=== PATIENT | female | born 1980 | race Caucasian/White ===

== ENCOUNTER → 2020-03-14 | Outpatient (CLI) | payer SELFPAY | LOC: M LABSMTC 14:09 | PROVIDERS: ATTEND Pediatrics | DX: Z20.828 Contact with and (suspected) exposure to other viral communicable diseases (principal) ==

== ENCOUNTER 2021-09-13 18:02 | Emergency (ER) | payer OTHER, SELFPAY ==
[~2021-09-13] VITALS: Ht 175.3 cm; Wt 75.0 kg
[2021-09-13 18:03] VITALS: BP 80/41
[2021-09-13] MEDS ORDERED: CETI-24 (18:25)
[2021-09-13] MEDS ORDERED: ceFAZolin SOD 2 GM in IV 1 EA IV ONE (18:25)
[2021-09-13] MEDS ORDERED: VALA500T5 (18:25)
[2021-09-13] MEDS ORDERED: BOOSTRIX/ADACEL VACCINE (DIPHTH/PERTUSS/ACELL/TETANUS) 0.5ML SYR IM ONE (18:25)
[2021-09-13] MEDS ORDERED: BUPR150T12 (18:25)
[2021-09-13] MEDS ORDERED: KLON0.5T (18:25)
[2021-09-13] MEDS ORDERED: NS 1,000 ML IV ONE (18:25)
[2021-09-13] MEDS ORDERED: LIDOCAINE 1% MDV 20ML VIAL SC ONE (18:30)
[2021-09-13] MEDS ORDERED: ONDANSETRON 4MG/2ML VIAL IV ONE (18:30)
[2021-09-13] MEDS ORDERED: MORPHINE 4 MG/ML 1ML VIAL/SYRINGE IV ONE (18:30)
[2021-09-13 19:03] LABS: BASO % 0.3 % (0.0-1.0); EOS # 0.1 10^3/uL (0.0-0.5); EOS % 1.3 % (0.0-3.0); HEMATOCRIT 38.9 % (36.0-47.0); HEMOGLOBIN 13.1 g/dl (12.0-15.5); LYMPH # 1.7 10^3/uL (1.5-5.0); LYMPH % 18.1 % (24.0-44.0); MEAN CORPUSCULAR HEMOGLOBIN 31.1 pg (27.0-33.0); MEAN CORPUSCULAR HGB CONC 33.7 g/dl (32.0-36.5); MEAN CORPUSCULAR VOLUME 92.4 fl (80.0-96.0); MONO # 0.6 10^3/uL (0.0-0.8); MONO % 6.1 % (2.0-8.0); NEUTROPHILS # 6.9 10^3/uL (1.5-8.5); NEUTROPHILS % 73.9 % (36.0-66.0); PLATELET COUNT, AUTOMATED 269 10^3/uL (150-450); RED BLOOD COUNT 4.21 10^6/uL (4.00-5.40); WHITE BLOOD COUNT 9.3 10^3/uL (4.0-10.0)
[2021-09-13 19:17] LABS: INR 0.92; PROTHROMBIN TIME 12.8 SECONDS (12.7-14.5)
[2021-09-13 19:18] LABS: PARTIAL THROMBOPLASTIN TIME 23.8 SECONDS (25.9-37.0)
[2021-09-13 19:25] LABS: BLOOD UREA NITROGEN 16 MG/DL (7-18); CALCIUM LEVEL 9.8 MG/DL (8.5-10.1); CARBON DIOXIDE LEVEL 28 MEQ/L (21-32); CHLORIDE LEVEL 105 MEQ/L (98-107); CREATININE FOR GFR 1.02 MG/DL (0.55-1.30); GLOMERULAR FILTRATION RATE > 60.0 (>58); GLUCOSE, FASTING 108 MG/DL (70-100); POTASSIUM SERUM 3.8 MEQ/L (3.5-5.1); SODIUM LEVEL 139 MEQ/L (136-145)
[2021-09-13 19:48] LABS: RSV AMPLIFICATION NEGATIVE (NEGATIVE)
[2021-09-13] MEDS ORDERED: LIDOCAINE W/EPINEPHRINE 1% 20ML VIAL As Ordered ONE (20:02)
[2021-09-13] MEDS ORDERED: OXYCODONE/APAP 5MG/325MG(HOME DOSE PACK) PO ONE (21:15)
[2021-09-13] MEDS ORDERED: PERC5TAB12 PO (21:43)
== END 2021-09-13 22:30 | disposition home or self-care (01) ==
LOC: M ED 18:02
DX: S71.122A Laceration with foreign body, left thigh, initial encounter (principal); W20.8XXA Other cause of strike by thrown, projected or falling object, initial encounter; Y92.099 Unspecified place in other non-institutional residence as the place of occurrence of the external cause; I45.19 Other right bundle-branch block
CPT/HCPCS: 12006; 73552; 80048; 84702; 85025; 85610; 85730; 86850; 86900; 86901; 87631; 90471; 90715; 93005; 96365; 96375; 99284; J0690; J2270; J2405